=== PATIENT | female | born 1995 | race American Indian/Alaskan Native ===

== ENCOUNTER 2020-09-18 10:48 | Emergency (ER) | payer OTHER ==
--- NOTE | 2020-09-18 11:00 | Emergency Department Report ---
ED General Adult HPI - General Stated complaint: 13 WKS /ABD PAIN/CONSTIPATION PUI?: No Time Seen by Provider: 09/18/20 10:56 - History of Present Illness Initial comments: 24-year-old female presenting at 13 weeks gestation with multiple complaints. The patient states that she has had nausea and vomiting throughout but is being treated by her RESTORATIVE ART EMBALMER and she is primarily here today due to abdominal pain which has been more constant over the past several days especially in the lower abdomen described as cramping. Reports that she may have a UTI but denies specific symptoms related to this. Also reports that she is constipated with no relief with stool softener [id number]. States that at times the pain will radiate into her back. Denies fever, vaginal bleeding or discharge. Sent here by her RESTORATIVE ART EMBALMER for evaluation. Nothing makes symptoms worse or better. - Related Data Previous Rx's Medication Instructions Recorded Last Taken Type Polyethylene Glycol 3350 [Miralax] 17 gm PO DAILY #1 powder 09/18/20 Unknown Rx Allergies Allergy/AdvReac Type Severity Reaction Status Date / Time Penicillins Allergy Hives Verified 09/18/20 11:07 ED Review of Systems ROS: Stated complaint: 13 WKS /ABD PAIN/CONSTIPATION Other details as noted in HPI Comment: All other systems reviewed and negative Gastrointestinal: as per HPI ED Past Medical Hx - Medications Home Medications: Home Medications Medication Instructions Recorded Confirmed Last Taken Type Polyethylene Glycol 3350 [Miralax] 17 gm PO DAILY #1 powder 09/18/20 Unknown Rx ED Physical Exam - General General appearance: alert, in no apparent distress - Head Head exam: Present: atraumatic, normocephalic - Eye Eye exam: Present: normal appearance - ENT ENT exam: Present: mucous membranes moist - Neck Neck exam: Present: normal inspection - Respiratory Respiratory exam: Present: normal lung sounds bilaterally. Absent: respiratory distress - Cardiovascular Cardiovascular Exam: Present: regular rate, normal rhythm. Absent: systolic murmur, diastolic murmur, rubs, gallop - GI/Abdominal GI/Abdominal exam: Present: soft, normal bowel sounds. Absent: distended, tenderness, guarding - Extremities Exam Extremities exam: Present: normal inspection - Back Exam Back exam: Present: normal inspection - Neurological Exam Neurological exam: Present: alert, oriented X3 - Psychiatric Psychiatric exam: Present: normal affect, normal mood - Skin Skin exam: Present: warm, dry, intact, normal color. Absent: rash ED Course Vital Signs 09/18/20 11:07 Temperature 98.1 F Pulse Rate 92 H Respiratory 18 Rate Blood Pressure 126/79 O2 Sat by Pulse 99 Oximetry ED Medical Decision Making - Lab Data Result diagrams: 09/18/20 11:03 09/18/20 11:03 Lab Results 09/18/20 09/18/20 09/18/20 Range/Units 11:03 11:03 11:03 WBC 9.1 (4.5-11.0) K/mm3 RBC 4.07 (3.65-5.03) M/mm3 Hgb 13.0 (10.1-14.3) gm/dl Hct 37.9 (30.3-42.9) % MCV 93 (79-97) fl MCH 32 (28-32) pg MCHC 34 (30-34) % RDW 13.9 (13.2-15.2) % Plt Count 231 (140-440) K/mm3 Lymph % (Auto) 12.7 L (13.4-35.0) % [place] % (Auto) 7.3 (0.0-7.3) % Eos % (Auto) 0.6 (0.0-4.3) % Baso % (Auto) 0.3 (0.0-1.8) % Lymph # (Auto) 1.2 (1.2-5.4) K/mm3 [place] # (Auto) 0.7 (0.0-0.8) K/mm3 Eos # (Auto) 0.1 (0.0-0.4) K/mm3 Baso # (Auto) 0.0 (0.0-0.1) K/mm3 Seg Neutrophils % 79.1 H (40.0-70.0) % Seg Neutrophils # 7.2 (1.8-7.7) K/mm3 Sodium 135 L (137-145) mmol/L Potassium 4.0 (3.6-5.0) mmol/L Chloride 103.1 (98-107) mmol/L Carbon Dioxide 25 (22-30) mmol/L Anion Gap 11 mmol/L BUN 9 (7-17) mg/dL Creatinine 0.4 L (0.6-1.2) mg/dL Estimated GFR > 60 ml/min BUN/Creatinine Ratio 23 % Glucose 89 (65-100) mg/dL Calcium 9.1 (8.4-10.2) mg/dL Total Bilirubin < 0.20 (0.1-1.2) mg/dL AST 20 (5-40) units/L ALT 17 (7-56) units/L Alkaline Phosphatase 36 (35-129) units/L Total Protein 6.9 (6.3-8.2) g/dL Albumin 4.1 (3.9-5) g/dL Albumin/Globulin Ratio 1.5 % HCG, Quant [id number] H (0-4) mIU/mL Urine Color (Yellow) Urine Turbidity (Clear) Urine pH (5.0-7.0) Ur Specific [place] (1.003-1.030) Urine Protein (Negative) mg/dL Urine Glucose (UA) (Negative) mg/dL Urine Ketones (Negative) mg/dL Urine Blood (Negative) Urine Nitrite (Negative) Urine Bilirubin (Negative) Urine Urobilinogen (<2.0) mg/dL Ur Leukocyte Esterase (Negative) Urine WBC (Auto) (0.0-6.0) /HPF Urine RBC (Auto) (0.0-6.0) /HPF U Epithel Cells (Auto) (0-13.0) /HPF Urine Mucus /HPF Blood Type 09/18/20 09/18/20 Range/Units 11:07 11:16 WBC (4.5-11.0) K/mm3 RBC (3.65-5.03) M/mm3 Hgb (10.1-14.3) gm/dl Hct (30.3-42.9) % MCV (79-97) fl MCH (28-32) pg MCHC (30-34) % RDW (13.2-15.2) % Plt Count (140-440) K/mm3 Lymph % (Auto) (13.4-35.0) % [place] % (Auto) (0.0-7.3) % Eos % (Auto) (0.0-4.3) % Baso % (Auto) (0.0-1.8) % Lymph # (Auto) (1.2-5.4) K/mm3 [place] # (Auto) (0.0-0.8) K/mm3 Eos # (Auto) (0.0-0.4) K/mm3 Baso # (Auto) (0.0-0.1) K/mm3 Seg Neutrophils % (40.0-70.0) % Seg Neutrophils # (1.8-7.7) K/mm3 Sodium (137-145) mmol/L Potassium (3.6-5.0) mmol/L Chloride (98-107) mmol/L Carbon Dioxide (22-30) mmol/L Anion Gap mmol/L BUN (7-17) mg/dL Creatinine (0.6-1.2) mg/dL Estimated GFR ml/min BUN/Creatinine Ratio % Glucose (65-100) mg/dL Calcium (8.4-10.2) mg/dL Total Bilirubin (0.1-1.2) mg/dL AST (5-40) units/L ALT (7-56) units/L Alkaline Phosphatase (35-129) units/L Total Protein (6.3-8.2) g/dL Albumin (3.9-5) g/dL Albumin/Globulin Ratio % HCG, Quant (0-4) mIU/mL Urine Color Straw (Yellow) Urine Turbidity Clear (Clear) Urine pH 7.0 (5.0-7.0) Ur Specific [place] 1.011 (1.003-1.030) Urine Protein <15 mg/dl (Negative) mg/dL Urine Glucose (UA) Neg (Negative) mg/dL Urine Ketones Neg (Negative) mg/dL Urine Blood Neg (Negative) Urine Nitrite Neg (Negative) Urine Bilirubin Neg (Negative) Urine Urobilinogen < 2.0 (<2.0) mg/dL Ur Leukocyte Esterase Tr (Negative) Urine WBC (Auto) 2.0 (0.0-6.0) /HPF Urine RBC (Auto) 4.0 (0.0-6.0) /HPF U Epithel Cells (Auto) 10.0 (0-13.0) /HPF Urine Mucus Few /HPF Blood Type A POSITIVE - Radiology Data Radiology results: report reviewed Single viable intrauterine with small subchorionic bleed - Medical Decision Making Patient presents at 13 weeks gestation with complaints of abdominal pain, constipation, cramping without bleeding for the past few days. On my exam patient is in no distress, ambulatory without difficulty, normal heart sounds, clear lungs, no significant abdominal tenderness is noted. No peritonitis. We will check labs and ultrasound. Ultrasound shows small subchorionic bleed, remainder of work-up benign. Discussed supportive care for constipation, pelvic rest, follow-up with RESTORATIVE ART EMBALMER. - Differential Diagnosis Threatened miscarriage, UTI, constipation among others Critical care attestation.: If time is entered above; I have spent that time in minutes in the direct care of this critically ill patient, excluding procedure time. ED Disposition Clinical Impression: Constipation Qualifiers: Constipation type: unspecified constipation type Qualified Code(s): K59.00 - Constipation, unspecified Subchorionic bleed Qualifiers: Fetus number: single or unspecified fetus Trimester: second trimester Qualified Code(s): O41.8X20 - Other specified disorders of amniotic fluid and membranes, second trimester, not applicable or unspecified; O46.8X2 - Other antepartum hemorrhage, second trimester Disposition: TO HOME OR SELFCARE Is pt being admited?: No Condition: Good Instructions: Constipation, Adult, Subchorionic Hematoma Prescriptions: Polyethylene Glycol 3350 [Miralax] 17 gm PO DAILY #1 powder Referrals: PRIMARY CARE, [Primary Care Provider] - 3-5 Days LYN DAVIS MD [Staff Physician] - 3-5 Days Time of Disposition: 14:18
[2020-09-18 11:09] VITALS: BP 126/79
[2020-09-18 11:13] LABS: Basophils % (Auto) 0.3 % (0.0-1.8); Eosinophils # (Auto) 0.1 K/mm3 (0.0-0.4); Eosinophils % (Auto) 0.6 % (0.0-4.3); Hematocrit 37.9 % (30.3-42.9); Lymphocytes # (Auto) 1.2 K/mm3 (1.2-5.4); Lymphocytes % (Auto) 12.7 % (13.4-35.0); Mean Corpuscular HGB Conc 34 % (30-34); Mean Corpuscular Volume 93 fl (79-97); Monocytes # (Auto) 0.7 K/mm3 (0.0-0.8); Monocytes % (Auto) 7.3 % (0.0-7.3); Platelet Count 231 K/mm3 (140-440); Red Blood Count 4.07 M/mm3 (3.65-5.03); Red Cell Distribution Width 13.9 % (13.2-15.2)
[2020-09-18 11:27] LABS: Bilirubin,Urine NEG (Negative); Blood,Urine NEG (Negative); Color,Urine Straw (Yellow); Mucus,Urine FEW /HPF; Protein,Urine <15 mg/dL mg/dL (Negative); Urobilinogen,Urine < 2.0 mg/dL (<2.0)
[2020-09-18 11:34] LABS: Alanine Aminotransferase 17 units/L (7-56); Albumin 4.1 g/dL (3.9-5); BUN/Creatinine Ratio 23; Blood Urea Nitrogen 9 mg/dL (7-17); Calcium 9.1 mg/dL (8.4-10.2); Hemolysis Index 5
--- NOTE | 2020-09-18 14:15 | Ultrasound Report ---
ULTRASOUND OBSTETRIC COMPLETE INDICATION / CLINICAL INFORMATION: pain. Clinical Gestational Age (GA) in weeks, days: 13 weeks, 3 days TECHNIQUE: Transabdominal and Transvaginal. COMPARISON: None available. FINDINGS: NUMBER: Single PRESENTATION: unknown PLACENTA: Posterior and free of the os. MATERNAL ADNEXAL/CERVIX: No significant adnexal abnormality. Cervix measures 3.8 cm and os is closed. AMNIOTIC FLUID VOLUME: normal AMNIOTIC FLUID INDEX (DUNIA) in cm (if measured): Not measured ANATOMY: Examination is not tailored to evaluate detailed anatomy. No gross anatomic abnormality is iden tified. MEASUREMENTS: - Biparietal Diameter = 2.3 cm = 13 weeks 6 days - Head Circumference = 8.7 cm = 13 weeks 6 days - Abdominal Circumference = 7.2 cm = 13 weeks 5 days - Femur Length = 1.4 cm = 14 weeks 1 day - Heart Rate (beats per minute): 161 bpm ADDITIONAL FINDINGS: Small subchorionic hemorrhage measuring 1.5 x 1.2 x 1.2 cm. AVERAGE ULTRASOUND AGE (AUA) in weeks, days = 13 weeks 6 days IMPRESSION: 1. Single intrauterine with AUA of 13 weeks 6 days. 2. Small subchorionic hemorrhage, not greater than 25% of the sac circumference. Continued follow-up is recommended. Signer Name: Venkat Redman MD Signed: 09/18/2020 2:10 PM Workstation Name: [id number]
== END 2020-09-18 15:14 | disposition home or self-care (01) ==
LOC: ED 10:48
DX: O46.91 Antepartum hemorrhage, unspecified, first trimester (principal); O99.611 Diseases of the digestive system complicating pregnancy, first trimester; K59.00 Constipation, unspecified; Z3A.13 13 weeks gestation of pregnancy; Z79.899 Other long term (current) drug therapy; Z88.0 Allergy status to penicillin
CPT/HCPCS: 36415; 76801; 76817; 80053; 81001; 84702; 85025; 86900; 86901

== ENCOUNTER 2020-11-02 14:16 | Emergency (ER) | payer OTHER ==
[2020-11-02] MEDS ORDERED: ALBUTEROL 2.5 MG/3 ML NEBU IH ONE (15:14)
--- NOTE | 2020-11-02 16:20 | Emergency Department Report ---
ED Shortness of Breath HPI - General Chief Complaint: Dyspnea/Respdistress Stated Complaint: BREATHING PROBLEM Time Seen by Provider: 11/02/20 14:59 Source: patient Mode of arrival: Wheelchair Limitations: No Limitations - History of Present Illness Initial Comments: 25-year-old -[place] female who is approximately 19 weeks and 6 days presents to the emergency room complaining of shortness of breath and tightness to her abdomen. Patient states she was sent to the ER by her [facility] SUPER[facility] at [facility] for the shortness of breath. Patient reports that they told her that her tightness in her lower abdomen was due to round ligament stretching. Patient is 4 para 3. She was sent to [facility] [place] as we thought she was 20 weeks and she was released and sent back to the ER for evaluation. Patient states that she has a history of asthma but has not been on any albuterol. Patient recently relocated from [place] to [place]. Patient states she has been taken Tylenol but this does not seem to help much with her ligament pain. Patient denies any vaginal bleeding or vaginal discharge. She denies any vomiting does states she has intermittent nausea. She reports that this is different from her last as she does not have much of an appetite and is having more lower abdominal pain earlier in her . Complaint: shortness of breath - Related Data Previous Rx's Medication Instructions Recorded Last Taken Type Polyethylene Glycol 3350 [Miralax] 17 gm PO DAILY #1 powder 09/18/20 Unknown Rx Cetirizine HCl [Zyrtec 10mg tab] 10 mg PO QDAY #30 tablet 11/02/20 Unknown Rx Levalbuterol Tartrate 15 gm IH QID PRN #1 hfa.aer.ad 11/02/20 Unknown Rx [Levalbuterol Tartrate Hfa] Allergies Allergy/AdvReac Type Severity Reaction Status Date / Time Penicillins Allergy Hives Verified 09/18/20 11:07 ED Review of Systems ROS: Stated complaint: BREATHING PROBLEM Other details as noted in HPI Comment: All other systems reviewed and negative ED Past Medical Hx - Past Medical History Previous Medical History?: Yes Hx Asthma: Yes - Surgical History Additional Surgical History: HERNIA - Social History Smoking Status: Never Smoker Substance Use Type: None - Medications Home Medications: Home Medications Medication Instructions Recorded Confirmed Last Taken Type Polyethylene Glycol 3350 [Miralax] 17 gm PO DAILY #1 powder 09/18/20 Unknown Rx Cetirizine HCl [Zyrtec 10mg tab] 10 mg PO QDAY #30 tablet 11/02/20 Unknown Rx Levalbuterol Tartrate 15 gm IH QID PRN #1 hfa.aer.ad 11/02/20 Unknown Rx [Levalbuterol Tartrate Hfa] ED Physical Exam - General Limitations: No Limitations General appearance: alert, in no apparent distress - Head Head exam: Present: atraumatic, normocephalic - Eye Eye exam: Present: normal appearance - Neck Neck exam: Present: normal inspection - Respiratory Respiratory exam: Present: normal lung sounds bilaterally. Absent: respiratory distress, accessory muscle use - Cardiovascular Cardiovascular Exam: Present: regular rate, normal rhythm. Absent: systolic murmur, diastolic murmur, rubs, gallop - GI/Abdominal GI/Abdominal exam: Present: soft, tenderness (Right and lower abdomen near her groin area) - Extremities Exam Extremities exam: Present: normal inspection, full ROM. Absent: pedal edema - Back Exam Back exam: Present: normal inspection - Neurological Exam Neurological exam: Present: alert, oriented X3 - Psychiatric Psychiatric exam: Present: normal affect, normal mood - Skin Skin exam: Present: warm, dry, intact, normal color. Absent: rash ED Course Vital Signs 11/02/20 11/02/20 14:52 14:55 Temperature 97.6 F Pulse Rate 91 H Respiratory 22 Rate Blood Pressure 107/61 [Right] O2 Sat by Pulse 100 Oximetry ED Medical Decision Making - Medical Decision Making 25-year-old -[place] female who is approximately 19 weeks and 6 days presents to the emergency room complaining of shortness of breath and tightness to her abdomen. Patient states she was sent to the ER by her [facility] SUPER[facility] at [facility] for the shortness of breath. Patient reports that they told her that her tightness in her lower abdomen was due to round ligament stretching. Patient is 4 para 3. [facility] she [facility] 20 weeks and she was released and sent back to the ER for evaluation. Patient states that she has a history of asthma but has not been on any albuterol. Patient recently relocated from [place] to [place]. Patient s tates she has been taken Tylenol but this does not seem to help much with her ligament pain. Patient denies any vaginal bleeding or vaginal discharge. She denies any vomiting does states she has intermittent nausea. She reports that this is different from her last as she does not have much of an appetite and is having more lower abdominal pain earlier in her . Patient was evaluated by this provider. Initiated albuterol 5 mg inhalation given by respiratory therapist. Reevaluating with patient she states that it has helped but now she feels a little jittery. I explained to patient this is side effects of albuterol. She does report she is breathing better. Discussed with patient she can continue with Tylenol as needed for her round ligament pain. Discussed with patient she needs to follow-up with her FORKLIFT SUPERVISOR next week. I will refill her albuterol inhaler. Critical care attestation.: If time is entered above; I have spent that time in minutes in the direct care of this critically ill patient, excluding procedure time. ED Disposition Clinical Impression: Asthma, Pain of round ligament during Disposition: TO HOME OR SELFCARE Is pt being admited?: No Does the pt Need Aspirin: No Condition: Stable Instructions: Asthma (ED), Round Ligament Pain, Asthma, Adult, [id number] Additional Instructions: Please use inhaler as needed for shortness of breath and cough. Take Zyrtec's for allergies this will help with the cough sneezing runny nose. Tylenol for your pain. Increase your water intake. Follow-up with your FORKLIFT SUPERVISOR doctor next week. Prescriptions: Levalbuterol Tartrate [Levalbuterol Tartrate Hfa] 15 gm IH QID PRN #1 hfa.aer.ad PRN Reason: Shortness Of Breath Cetirizine HCl [Zyrtec 10mg tab] 10 mg PO QDAY #30 tablet Referrals: PRIMARY CARE, [Primary Care Provider] - 3-5 Days [facility] [Provider Group] - 3-5 Days
[2020-11-02 16:31] VITALS: BP 119/71
== END 2020-11-02 16:38 | disposition home or self-care (01) ==
LOC: ED 14:16
DX: O99.512 Diseases of the respiratory system complicating pregnancy, second trimester (principal); O26.892 Other specified pregnancy related conditions, second trimester; J45.909 Unspecified asthma, uncomplicated; R10.30 Lower abdominal pain, unspecified; Z3A.19 19 weeks gestation of pregnancy; Z98.890 Other specified postprocedural states; Z79.899 Other long term (current) drug therapy; Z88.0 Allergy status to penicillin
CPT/HCPCS: 94640; 94644; 99282

== ENCOUNTER 2021-04-01 08:34 | Inpatient (IN) | payer OTHER ==
[2021-04-01] MEDS ORDERED: LOPERAMIDE 2 MG CAP PO PRN (10:14)
[2021-04-01] MEDS ORDERED: NALOXONE 0.4 MG/1 ML INJ IV PRN (10:14)
[2021-04-01] MEDS ORDERED: OXYTOCIN 10 UNIT/1 ML INJ IM PRN (10:14)
[2021-04-01] MEDS ORDERED: LIDOCAINE (2%) 20 MG/1 ML VIAL 20 ML MDV INFILTRATI ONE (10:14)
[2021-04-01] MEDS ORDERED: fentaNYL 100 MCG/2 ML INJ IV PRN (10:14)
[2021-04-01] MEDS ORDERED: METHYLERGONOVINE MALEATE 0.2 MG/ML VIAL IM PRN (10:14)
[2021-04-01] MEDS ORDERED: TERBUTALINE 1 MG/1 ML INJ SUB-Q PRN (10:14)
[2021-04-01] MEDS ORDERED: ACETAMINOPHEN 325 MG TAB PO PRN (10:14)
[2021-04-01] MEDS ORDERED: CARBOPROST TROMETHAMINE 250 MCG/1 ML INJ IM PRN (10:14)
[2021-04-01] MEDS ORDERED: NalbUPHINE 10 MG/1 ML INJ IV PRN (10:14)
[2021-04-01] MEDS ORDERED: ONDANSETRON 4 MG/2 ML INJ IV PRN (10:14)
[2021-04-01] MEDS ORDERED: ePHEDrine SULFATE 50 MG/1 ML INJ IV PRN ×2 (10:14→18:17)
[2021-04-01] MEDS ORDERED: miSOPROStol 200 MCG TAB PR PRN (10:14)
--- NOTE | 2021-04-01 10:14 | History and Physical Report ---
History of Present Illness Date of examination: 04/01/21 Date of admission: 04/01/2021 Chief complaint: "I'm past my due date" History of present illness: EDC Confirmation: 03/23/2021 Gestational Age: 41 2/7 weeks Past History : 4 Term Births: 3 Premature Births: 0 Living Children: 3 Para: 3 Mult. Births: 0 Prev : 0 Aborta: 0 Elect. Ab: 0 Spont. Ab: 0 Ectopics: 0 # 1 Delivery date: 2013 Weeks Gestation: term labor: no Delivery type: Anesthesia type: epidural Delivery location: [place] Sex: Male weight: 6-14 # 2 Delivery date: 2016 Weeks Gestation: term Delivery type: Anesthesia type: epidural Delivery location: [place] Sex: Male weight: 6-12 # 3 Delivery date: 2017 Weeks Gestation: term labor: no Delivery type: Anesthesia type: epidural Delivery location: [place] Sex: Male weight: 6-14 Comments: Nuchal cord and jaundice, in NICU for 2-3 days Past Medical History: Reviewed history and no changes required: Bipolar Disease Depression PTSD from childhood Asthma Past Surgical History: Reviewed history and no changes required: negative Past Medical History Anesthesia Complications: negative Anemia: positive, After hernia surgery Autoimmune Disorder: negative Bleeding Disorder: negative Blood Transfusions: negative Breast Disease: negative Diabetes: negative Heart Disease: negative Hypertension: negative Hepatitis/Liver Disease: negative Kidney Disease/UTI: negative Neurologic/Epilepsy/Migraines: negative Phlebitis/Varicosities: negative Psychiatric: positive, Bipolar, PTSD, Depression Pulmonary Disease/Asthma: negative Thyroid Disease: negative Hospitalizations: negative Surgery (Non-permit coordinator): negative Abnormal PAP: negative KEEGAN Exposure: negative Infertility: negative Uterine Anomaly: negative Uterine Surgery (not C/S): negative Other Gynecologic Problems: negative Family Hx: Grand Parents: DM, cervical cancer, liver failure, HTN Infection History Hx of STD: Trich/GC/CH HIV Risk Eval: no Hepatitis B Risk Eval: low risk Personal hx. of genital herpes: no Partner hx. of genital herpes: no Rash, Viral, or Febrile illness since last LMP? no Varicella/Chicken Pox Status: Previous Disease TB Risk: no Genetic History Congenital Heart Defect: Mom: no Dad: no Lei Disease: Mom: no Dad: no Thalassemia Mom: no Dad: no Neural Tube Defect Mom: no Dad: no Down's Syndrome Mom: no Dad: no Ross-Sachs Mom: no Dad: no Sickle Cell Disease/Trait Mom: no Dad: no Hemophilia Mom: no Dad: no Muscular Dystrophy Mom: no Dad: no Cystic Fibrosis Mom: no Dad: no Morales Chorea Mom: no Dad: no Mental Retardation Mom: no Dad: no Fragile X Mom: no Dad: no Other Genetic/Chromosomal Disorder Mom: no Dad: no Child w/other defect Mom: no Dad: no Enviromental Exposures Enviromental Exposures Reviewed Xray Exposure: no Medication, drug, or alcohol use since LMP: no Chemical/Other Exposure: no Exposure to Cat Liter: no Hx of Parvovirus (Fifth Disease): no Occupational Exposure to Children: none Active Medications (reviewed today): ONDANSETRON 8 MG ORAL TABLET DISINTEGRATING (ONDANSETRON) 1 po q12hrs prn REGLAN 10 MG ORAL TABLET (METOCLOPRAMIDE HCL) 1 po q6h x24hrs then prn PNV () Current Allergies (reviewed today): * PENICILLIN (Critical) Past History Past Medical History: other (see HPI) Past Surgical History: other (see HPI) 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: 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 (see HPI) Family/Genetic History: other (see HPI) Social history: other (see HPI) - Obstetrical History Expected Date of Delivery: 03/23/21 Actual Gestation: 41 Week(s) 2 Day(s) : 4 Para: 3 Hx # Term Pregnancies: 3 Number of Pregnancies: 0 Spontaneous Abortions: 0 Induced : 0 Number of Living Children: 3 Medications and Allergies Allergies Allergy/AdvReac Type Severity Reaction Status Date / Time Penicillins Allergy Hives Verified 09/18/20 11:07 Home Medications Medication Instructions Recorded Confirmed Last Taken Type Polyethylene Glycol 3350 [Miralax] 17 gm PO DAILY #1 powder 09/18/20 Unknown Rx Cetirizine HCl [Zyrtec 10mg tab] 10 mg PO QDAY #30 tablet 11/02/20 Unknown Rx Levalbuterol Tartrate 15 gm IH QID PRN #1 hfa.aer.ad 11/02/20 Unknown Rx [Levalbuterol Tartrate Hfa] Review of Systems All systems: negative Genitourinary: contractions - Vital Signs Vital signs: Vital Signs Temp Pulse Resp BP Pulse Ox 98.1 F 100 H 16 115/71 99 04/01/21 09:28 04/01/21 09:28 04/01/21 09:28 04/01/21 09:28 04/01/21 09:28 Temp Pulse Resp BP Pulse Ox 98.1 F 80 16 115/71 100 04/01/21 09:28 04/01/21 09:43 04/01/21 09:28 04/01/21 09:28 04/01/21 09:43 - Physical Exam Breasts: Positive: deferred Cardiovascular: Regular rate Lungs: Positive: Clear to auscultation, Normal air movement Abdomen: Positive: normal appearance, soft. Negative: tenderness, guarding Genitourinary (Female): Positive: normal external genitalia, normal perenium Vulva: both: normal Vagina: Positive: normal moisture. Negative: discharge Uterus: Positive: normal size, normal contour Anus/Rectum: Positive: normal perianal skin Extremities: Positive: normal - Obstetrical FHR: auscultation normal, category 1 Uterine Contraction Monitor Mode: External Cervical Dilatation: 2 Cervical Effacement Percentage: 50 station: -2 Uterine Contraction Pattern: Irregular Uterine Tone Measurement Phase: Resting Results Result Diagrams: 04/01/21 11:01 All other labs normal. Tests: (1) Ct, Ng, Trich vag by HOLLEY ([id number]) Order Note: Clinical Information: SRC:VR SRC:UR Chlamydia by HOLLEY Negative Negative *1 Gonococcus by HOLLEY Negative Negative *2 Trich vag by HOLLEY Negative Negative *3 Tests: (2) Strep Gp B HOLLEY ([id number]) ! Strep Gp B HOLLEY Negative Negative *4 Tests: (1) Profile I ([id number]) Order Note: Clinical Information: SRC:UR HBsAg Screen Negative Negative *1 RPR Non Reactive Non Reactive *2 Rubella Antibodies, IgG 6.13 index Immune >0.99 *3 Non-immune <0.90 Equivocal 0.90 - 0.99 Immune >0.99 ABO Grouping A *4 Rh Factor Positive *5 Please note: Prior records for this patient's ABO / Rh type are not available for additional verification. Antibody Screen Negative Negative *6 WBC 10.2 x10E3/uL 3.4-10.8 *7 RBC 4.06 x10E6/uL 3.77-5.28 *8 Hemoglobin 12.5 g/dL 11.1-15.9 *9 Hematocrit 39.1 % 34.0-46.6 *10 MCV 96 fL 79-97 *11 MCH 30.8 pg 26.6-33.0 *12 MCHC 32.0 g/dL 31.5-35.7 *13 RDW 13.1 % 11.7-15.4 *14 Platelets 245 x10E3/uL 150-450 *15 Neutrophils 77 % Not Estab. *16 Lymphs 15 % Not Estab. *17 Monocytes 7 % Not Estab. *18 Eos 1 % Not Estab. *19 Basos 0 % Not Estab. *20 ! Immature Cells <No Reported Value> *21 Neutrophils (Absolute) [H] 7.9 x10E3/uL 1.4-7.0 *22 Lymphs (Absolute) 1.5 x10E3/uL 0.7-3.1 *23 Monocytes(Absolute) 0.7 x10E3/uL 0.1-0.9 *24 Eos (Absolute) 0.1 x10E3/uL 0.0-0.4 *25 Baso (Absolute) 0.0 x10E3/uL 0.0-0.2 *26 ! Immature Granulocytes 0 % Not Estab. *27 ! Immature Grans (Abs) 0.0 x10E3/uL 0.0-0.1 *28 ! NRBC <No Reported Value> *29 Hematology Comments: <No Reported Value> *30 Tests: (2) HIV Ag/Ab with Reflex ([id number]) HIV Screen 4th Generation wRfx Non Reactive Non Reactive *31 Tests: (3) HCV Ab w/Rflx to Verification ([id number]) ! HCV Ab <0.1 s/co ratio 0.0-0.9 *32 Tests: (4) Comment: ([id number]) ! Comment: SPRCS *33 Non reactive HCV antibody screen is consistent with no HCV infection, unless recent infection is suspected or other evidence exists to indicate HCV infection. Tests: (5) Urine Culture, Routine ([id number]) Urine Culture, Routine Final report *34 Tests: (6) Result ([id number]) ! Result 1 No growth *35 Assessment and Plan Pt presents for IOL for postdates. Pt denies any complaints at this time. Reports +FM and occasional contractions. GBS negative and SVE 2/50%/-2; pt tolerated procedure well. All IOL options with risks and benefits d/w pt. Pt verbalizes understanding and agrees to Pitocin. Orders placed in EMR. Anticipate - Patient Problems (1) 41 weeks gestation of Current Visit: Yes Status: Acute (2) Encounter for induction of labor Current Visit: Yes Status: Acute (3) Asthma Current Visit: Yes Status: Acute Plan to address problem: no current home medications (4) PTSD (post-traumatic stress disorder) Current Visit: Yes Status: Acute Plan to address problem: from childhood and no current home medications taken (5) Bipolar affect, depressed Current Visit: Yes Status: Acute Plan to address problem: no current medications prescribed Psych consult PRN
[2021-04-01] MEDS ORDERED: OXYTOCIN DRIP 30 UNITS/500 ML BAG IV SCH ×2 (11:00)
[2021-04-01 11:26] LABS: Hemoglobin 13.4 gm/dl (10.1-14.3); Mean Corpuscular HGB Conc 34 % (30-34); Mean Corpuscular Volume 95 fl (79-97); Platelet Count 188 K/mm3 (140-440); Red Blood Count 4.11 M/mm3 (3.65-5.03); Red Cell Distribution Width 14.9 % (13.2-15.2)
[2021-04-01] MEDS: LACTATED RINGERS 1,000 ML IV SCH ×2 (11:45→22:27)
--- NOTE | 2021-04-01 16:44 | Anesthesia Consultation ---
Anesthesia Consult and Med Hx Date of service: 04/01/21 - Airway ROM Head & Neck: Adequate - Pulmonary Exam CTA: No - Cardiac Exam Cardiac Exam: No Murmur - Pre-Operative Health Status ASA Pre-Surgery Classification: ASA2 Proposed Anesthetic Plan: Epidural - Pulmonary Hx Asthma: Yes Hx Respiratory Symptoms: No SOB: No COPD: No Home Oxygen Therapy: No Hx Pneumonia: No Hx Sleep Apnea: No - Cardiovascular System Hx Hypertension: No Hx Coronary Artery Disease: No Hx Heart Attack/AMI: No Hx Angina: No Hx Percutaneous Transluminal Coronary Angioplasty (PTCA): No Hx Cardia Arrhythmia: No Hx Pacemaker: No Hx Internal Defibrillator: No Hx Valvular Heart Disease: No Hx Heart Murmur: No Hx Peripheral Vascular Disease: No - Central Nervous System Hx Neuromuscular Disorder: No Hx Seizures: No CVA: No Hx Back Pain: No Hx Psychiatric Problems: No - Gastrointestinal Hx Ulcer: No Hx Gastroesophageal Reflux Disease: No - Endocrine Hx Renal Disease: No Hx End Stage Renal Disease: No Hx Cirrhosis: No Hx Liver Disease: No Hx Insulin Dependent Diabetes: No Hx Non-Insulin Dependent Diabetes: No Hx Thyroid Disease: No Hx Hypothyroidism: No Hx Hyperthyroidism: No - Hematic Hx Anemia: No Hx Sickle Cell Disease: No - Other Systems Hx Alcohol Use: No Hx Substance Use: No Hx Cancer: No Hx Obesity: No
[2021-04-01] MEDS ORDERED: NALOXONE 2 MG/2 ML INJ IV PRN (18:17)
--- NOTE | 2021-04-01 19:45 | Progress Note ---
Labor Epidural - Labor Epidural Start Time: 19:16 Stop Time: 19:34 Performed by:: FAYE MEDINA Procedure: Patient is requesting epidural for labor and pain. H&P, labs were reviewed. Patient IDed, H&P reviewed, all questions and concerns were answered, and consent was signed. Timeout was performed at bedside. Patient in sitting position. Sterile prep and drape was performed. 3ml of 1% lidocaine skin wheal at L[3]- L [4]. 18-gauge Tuohy epidural needle was advanced to loss of resistance with air technique cm. Negative CSF negative blood. Epidural catheter advanced to [15] centimeters. [negative] Aspiration [negative] test dose. Sterile dressing applied. Patient tolerated procedure.
[2021-04-01] MEDS: fentaNYL-BUPIV 2 MCG/ML-0.125% 200 MCG/100 ML BAG EPIDURAL SCH (20:20)
--- NOTE | 2021-04-01 20:46 | Progress Note ---
Assessment and Plan - Patient Problems (1) 41 weeks gestation of Current Visit: Yes Status: Acute (2) Encounter for induction of labor Current Visit: Yes Status: Acute (3) Asthma Current Visit: Yes Status: Acute (4) PTSD (post-traumatic stress disorder) Current Visit: Yes Status: Acute (5) Bipolar affect, depressed Current Visit: Yes Status: Acute Subjective - Subjective Interval history: EDC Confirmation: 03/23/2021 Gestational Age: 41 2/7 weeks Past History : 4 Term Births: 3 Premature Births: 0 Living Children: 3 Para: 3 Mult. Births: 0 Prev : 0 Aborta: 0 Elect. Ab: 0 Spont. Ab: 0 Ectopics: 0 # 1 Delivery date: 2013 Weeks Gestation: term labor: no Delivery type: Anesthesia type: epidural Delivery location: [facility] Sex: Male weight: 6-14 # 2 Delivery date: 2016 Weeks Gestation: term Delivery type: Anesthesia type: epidural Delivery location: [facility] Sex: Male weight: 6-12 # 3 Delivery date: 2017 Weeks Gestation: term labor: no Delivery type: Anesthesia type: epidural Delivery location: [facility] Sex: Male weight: 6-14 Comments: Nuchal cord and jaundice, infant in NICU for 2-3 days Past Medical History: Reviewed history and no changes required: Bipolar Disease Depression PTSD from childhood Asthma Past Surgical History: Reviewed history and no changes required: negative Past Medical History Anesthesia Complications: negative Anemia: positive, After hernia surgery Autoimmune Disorder: negative Bleeding Disorder: negative Blood Transfusions: negative Breast Disease: negative Diabetes: negative Heart Disease: negative Hypertension: negative Hepatitis/Liver Disease: negative Kidney Disease/UTI: negative Neurologic/Epilepsy/Migraines: negative Phlebitis/Varicosities: negative Psychiatric: positive, Bipolar, PTSD, Depression Pulmonary Disease/Asthma: negative Thyroid Disease: negative Hospitalizations: negative Surgery (Non-charging plug placer): negative Abnormal PAP: negative KEEGAN Exposure: negative Infertility: negative Uterine Anomaly: negative Uterine Surgery (not C/S): negative Other Gynecologic Problems: negative Family Hx: Grand Parents: DM, cervical cancer, liver failure, HTN Infection History Hx of STD: Trich/GC/CH HIV Risk Eval: no Hepatitis B Risk Eval: low risk Personal hx. of genital herpes: no Partner hx. of genital herpes: no Rash, Viral, or Febrile illness since last LMP? no Varicella/Chicken Pox Status: Previous Disease TB Risk: no Genetic History Congenital Heart Defect: Mom: no Dad: no Lie Disease: Mom: no Dad: no Thalassemia Mom: no Dad: no Neural Tube Defect Mom: no Dad: no Down's Syndrome Mom: no Dad: no Ross-Sachs Mom: no Dad: no Sickle Cell Disease/Trait Mom: no Dad: no Hemophilia Mom: no Dad: no Muscular Dystrophy Mom: no Dad: no Cystic Fibrosis Mom: no Dad: no Morales Chorea Mom: no Dad: no Mental Retardation Mom: no Dad: no Fragile X Mom: no Dad: no Other Genetic/Chromosomal Disorder Mom: no Dad: no Child w/other defect Mom: no Dad: no Enviromental Exposures Enviromental Exposures Reviewed Xray Exposure: no Medication, drug, or alcohol use since LMP: no Chemical/Other Exposure: no Exposure to Cat Liter: no Hx of Parvovirus (Fifth Disease): no Occupational Exposure to Children: none Active Medications (reviewed today): ONDANSETRON 8 MG ORAL TABLET DISINTEGRATING (ONDANSETRON) 1 po q12hrs prn REGLAN 10 MG ORAL TABLET (METOCLOPRAMIDE HCL) 1 po q6h x24hrs then prn PNV () Current Allergies (reviewed today): * PENICILLIN (Critical) Objective - Vital Signs Vital Signs: Vital Signs - 12hr 04/01/21 04/01/21 04/01/21 09:28 09:33 09:38 Temperature 98.1 F Pulse Rate 95 H 84 102 H Respiratory 16 Rate Blood Pressure 115/71 Blood Pressure 115/71 [Right] O2 Sat by Pulse 99 99 100 Oximetry 04/01/21 04/01/21 04/01/21 09:43 11:47 11:52 Temperature Pulse Rate 80 78 78 Respiratory Rate Blood Pressure Blood Pressure [Right] O2 Sat by Pulse 100 100 100 Oximetry 04/01/21 04/01/21 04/01/21 11:57 12:02 12:07 Temperature Pulse Rate 81 75 77 Respiratory Rate Blood Pressure Blood Pressure [Right] O2 Sat by Pulse 100 100 100 Oximetry 04/01/21 04/01/21 04/01/21 12:12 12:17 12:22 Temperature Pulse Rate 89 84 81 Respiratory Rate Blood Pressure Blood Pressure [Right] O2 Sat by Pulse 100 99 100 Oximetry 04/01/21 04/01/21 04/01/21 12:27 12:32 12:37 Temperature Pulse Rate 79 73 78 Respiratory Rate Blood Pressure Blood Pressure [Right] O2 Sat by Pulse 100 100 100 Oximetry 04/01/21 04/01/21 04/01/21 12:41 12:42 12:47 Temperature Pulse Rate 59 L 68 77 Respiratory Rate Blood Pressure Blood Pressure [Right] O2 Sat by Pulse 82 L 86 100 Oximetry 04/01/21 04/01/21 04/01/21 12:52 12:57 13:02 Temperature Pulse Rate 86 81 80 Respiratory Rate Blood Pressure Blood Pressure [Right] O2 Sat by Pulse 100 100 100 Oximetry 04/01/21 04/01/21 04/01/21 13:07 13:12 13:17 Temperature Pulse Rate 85 72 84 Respiratory Rate Blood Pressure Blood Pressure [Right] O2 Sat by Pulse 100 100 100 Oximetry 04/01/21 04/01/21 04/01/21 13:22 13:27 13:32 Temperature Pulse Rate 74 80 80 Respiratory Rate Blood Pressure Blood Pressure [Right] O2 Sat by Pulse 100 100 100 Oximetry 04/01/21 04/01/21 04/01/21 13:37 13:42 13:47 Temperature Pulse Rate 77 75 68 Respiratory Rate Blood Pressure Blood Pressure [Right] O2 Sat by Pulse 100 100 100 Oximetry 04/01/21 04/01/21 04/01/21 13:52 13:57 14:01 Temperature Pulse Rate 75 68 74 Respiratory Rate Blood Pressure Blood Pressure [Right] O2 Sat by Pulse 100 100 91 Oximetry 04/01/21 04/01/21 04/01/21 14:02 14:07 14:11 Temperature Pulse Rate 80 72 85 Respiratory Rate Blood Pressure Blood Pressure [Right] O2 Sat by Pulse 100 100 92 Oximetry 04/01/21 04/01/21 04/01/21 14:12 14:17 14:22 Temperature Pulse Rate 77 84 75 Respiratory Rate Blood Pressure Blood Pressure [Right] O2 Sat by Pulse 100 100 100 Oximetry 04/01/21 04/01/21 04/01/21 14:27 14:32 14:37 Temperature Pulse Rate 77 74 72 Respiratory Rate Blood Pressure Blood Pressure [Right] O2 Sat by Pulse 100 100 100 Oximetry 04/01/21 04/01/21 04/01/21 14:42 14:46 14:47 Temperature Pulse Rate 78 80 83 Respiratory Rate Blood Pressure Blood Pressure [Right] O2 Sat by Pulse 100 85 100 Oximetry 04/01/21 04/01/21 04/01/21 14:52 14:57 15:02 Temperature Pulse Rate 80 75 73 Respiratory Rate Blood Pressure Blood Pressure [Right] O2 Sat by Pulse 100 100 100 Oximetry 04/01/21 04/01/21 04/01/21 15:07 15:12 15:17 Temperature Pulse Rate 80 85 81 Respiratory Rate Blood Pressure Blood Pressure [Right] O2 Sat by Pulse 100 100 100 Oximetry 04/01/21 04/01/21 04/01/21 15:22 15:27 15:32 Temperature Pulse Rate 80 77 90 Respiratory Rate Blood Pressure Blood Pressure [Right] O2 Sat by Pulse 100 100 100 Oximetry 04/01/21 04/01/21 04/01/21 15:37 15:42 15:47 Temperature Pulse Rate 85 86 87 Respiratory Rate Blood Pressure Blood Pressure [Right] O2 Sat by Pulse 100 100 100 Oximetry 04/01/21 04/01/21 04/01/21 15:52 15:57 16:02 Temperature Pulse Rate 89 75 80 Respiratory Rate Blood Pressure Blood Pressure [Right] O2 Sat by Pulse 99 99 100 Oximetry 04/01/21 04/01/21 04/01/21 16:07 16:12 16:17 Temperature Pulse Rate 76 85 79 Respiratory Rate Blood Pressure Blood Pressure [Right] O2 Sat by Pulse 100 100 100 Oximetry 04/01/21 04/01/21 04/01/21 16:22 16:25 16:27 Temperature Pulse Rate 68 77 71 Respiratory Rate Blood Pressure Blood Pressure [Right] O2 Sat by Pulse 100 91 99 Oximetry 04/01/21 04/01/21 04/01/21 16:30 16:32 16:37 Temperature Pulse Rate 155 H 75 Respiratory Rate Blood Pressure Blood Pressure [Right] O2 Sat by Pulse 87 83 L 100 Oximetry 04/01/21 04/01/21 04/01/21 16:42 16:47 16:52 Temperature Pulse Rate 78 77 76 Respiratory Rate Blood Pressure Blood Pressure [Right] O2 Sat by Pulse 100 100 100 Oximetry 04/01/21 04/01/21 04/01/21 16:57 17:02 17:07 Temperature Pulse Rate 76 75 74 Respiratory Rate Blood Pressure Blood Pressure [Right] O2 Sat by Pulse 100 100 100 Oximetry 04/01/21 04/01/21 04/01/21 17:12 17:17 17:22 Temperature Pulse Rate 70 80 72 Respiratory Rate Blood Pressure Blood Pressure [Right] O2 Sat by Pulse 100 100 100 Oximetry 04/01/21 04/01/21 04/01/21 17:27 17:32 17:37 Temperature Pulse Rate 76 76 76 Respiratory Rate Blood Pressure Blood Pressure [Right] O2 Sat by Pulse 100 100 99 Oximetry 04/01/21 04/01/21 04/01/21 17:42 17:47 17:52 Temperature Pulse Rate 76 74 75 Respiratory Rate Blood Pressure Blood Pressure [Right] O2 Sat by Pulse 100 100 100 Oximetry 04/01/21 04/01/21 04/01/21 17:58 18:02 18:07 Temperature Pulse Rate 81 77 75 Respiratory Rate Blood Pressure Blood Pressure [Right] O2 Sat by Pulse 100 100 100 Oximetry 04/01/21 04/01/21 04/01/21 18:12 18:17 18:28 Temperature Pulse Rate 76 81 77 Respiratory Rate Blood Pressure Blood Pressure [Right] O2 Sat by Pulse 100 100 80 L Oximetry 04/01/21 04/01/21 04/01/21 18:32 18:37 18:42 Temperature Pulse Rate 76 84 81 Respiratory Rate Blood Pressure Blood Pressure [Right] O2 Sat by Pulse 100 100 100 Oximetry 04/01/21 04/01/21 04/01/21 18:48 18:59 19:04 Temperature Pulse Rate 88 75 86 Respiratory Rate Blood Pressure Blood Pressure [Right] O2 Sat by Pulse 100 100 100 Oximetry 04/01/21 04/01/21 04/01/21 19:09 19:12 19:13 Temperature 97.7 F Pulse Rate 90 80 Respiratory 17 Rate Blood Pressure 119/71 Blood Pressure [Right] O2 Sat by Pulse 100 100 Oximetry 04/01/21 04/01/21 04/01/21 19:15 19:19 19:25 Temperature Pulse Rate 88 90 81 Respiratory Rate Blood Pressure Blood Pressure [Right] O2 Sat by Pulse 100 100 100 Oximetry 04/01/21 04/01/21 04/01/21 19:29 19:33 19:35 Temperature Pulse Rate 86 85 88 Respiratory Rate Blood Pressure 122/71 115/68 Blood Pressure [Right] O2 Sat by Pulse 100 100 Oximetry 04/01/21 04/01/21 04/01/21 19:37 19:39 19:40 Temperature Pulse Rate 85 85 80 Respiratory Rate Blood Pressure 113/68 118/72 Blood Pressure [Right] O2 Sat by Pulse 100 Oximetry 04/01/21 04/01/21 04/01/21 19:42 19:43 19:45 Temperature Pulse Rate 83 73 Respiratory Rate Blood Pressure 116/56 124/64 Blood Pressure [Right] O2 Sat by Pulse 100 Oximetry 04/01/21 04/01/21 04/01/21 19:50 19:54 19:55 Temperature Pulse Rate 77 72 75 Respiratory Rate Blood Pressure 106/63 127/71 Blood Pressure [Right] O2 Sat by Pulse 99 99 Oximetry 04/01/21 04/01/21 04/01/21 20:00 20:05 20:09 Temperature Pulse Rate 84 71 71 Respiratory Rate Blood Pressure 126/72 Blood Pressure [Right] O2 Sat by Pulse 98 99 Oximetry 04/01/21 04/01/21 04/01/21 20:10 20:14 20:20 Temperature Pulse Rate 78 71 75 Respiratory Rate Blood Pressure Blood Pressure [Right] O2 Sat by Pulse 99 99 99 Oximetry 04/01/21 04/01/21 04/01/21 20:25 20:30 20:35 Temperature Pulse Rate 72 79 66 Respiratory Rate Blood Pressure 114/65 Blood Pressure [Right] O2 Sat by Pulse 99 100 99 Oximetry 04/01/21 04/01/21 20:40 20:45 Temperature Pulse Rate 72 69 Respiratory Rate Blood Pressure 93/48 Blood Pressure [Right] O2 Sat by Pulse 99 99 Oximetry - Labs Labs: Abnormal Labs 04/01/21 11:01 MCH 33 H Laboratory Results - last 24 hr 04/01/21 04/01/21 04/01/21 08:25 11:01 11:01 WBC 6.8 RBC 4.11 Hgb 13.4 Hct 39.0 MCV 95 MCH 33 H MCHC 34 RDW 14.9 Plt Count 188 Syphilis IgG Antibody Nonreactive Coronavirus (PCR) Negative Blood Type Antibody Screen 04/01/21 11:01 WBC RBC Hgb Hct MCV MCH MCHC RDW Plt Count Syphilis IgG Antibody Coronavirus (PCR) Blood Type A POSITIVE Antibody Screen Negative
[2021-04-01] MEDS ORDERED: MINERAL OIL 30 ML ORAL LIQD PO PRN (22:00)
--- NOTE | 2021-04-01 23:26 | Progress Note ---
Assessment and Plan Pt comfortable s/p epidural. @2044 SVE 2/50/-2, now SVE 3.5/50/-2; plan to continue Pitocin induction per protocol d/w pt and RN at bedside. No questions or complaints verbalized at this time. Pt tolerated exam well. Anticipate - Patient Problems (1) 41 weeks gestation of Current Visit: Yes Status: Acute (2) Encounter for induction of labor Current Visit: Yes Status: Acute (3) Asthma Current Visit: Yes Status: Acute (4) PTSD (post-traumatic stress disorder) Current Visit: Yes Status: Acute (5) Bipolar affect, depressed Current Visit: Yes Status: Acute Subjective - Subjective Date of service: 04/01/21 Principal diagnosis: IUP @ 41.2 weeks, IOL for PD Patient reports: movement normal, no new complaints, no loss of fluid, no vaginal bleeding, no contractions Objective - Vital Signs Vital Signs: Vital Signs - 12hr 04/01/21 04/01/21 04/01/21 11:47 11:52 11:57 Temperature Pulse Rate 78 78 81 Respiratory Rate Blood Pressure O2 Sat by Pulse 100 100 100 Oximetry 04/01/21 04/01/21 04/01/21 12:02 12:07 12:12 Temperature Pulse Rate 75 77 89 Respiratory Rate Blood Pressure O2 Sat by Pulse 100 100 100 Oximetry 04/01/21 04/01/21 04/01/21 12:17 12:22 12:27 Temperature Pulse Rate 84 81 79 Respiratory Rate Blood Pressure O2 Sat by Pulse 99 100 100 Oximetry 04/01/21 04/01/21 04/01/21 12:32 12:37 12:41 Temperature Pulse Rate 73 78 59 L Respiratory Rate Blood Pressure O2 Sat by Pulse 100 100 82 L Oximetry 04/01/21 04/01/21 04/01/21 12:42 12:47 12:52 Temperature Pulse Rate 68 77 86 Respiratory Rate Blood Pressure O2 Sat by Pulse 86 100 100 Oximetry 04/01/21 04/01/21 04/01/21 12:57 13:02 13:07 Temperature Pulse Rate 81 80 85 Respiratory Rate Blood Pressure O2 Sat by Pulse 100 100 100 Oximetry 04/01/21 04/01/21 04/01/21 13:12 13:17 13:22 Temperature Pulse Rate 72 84 74 Respiratory Rate Blood Pressure O2 Sat by Pulse 100 100 100 Oximetry 04/01/21 04/01/21 04/01/21 13:27 13:32 13:37 Temperature Pulse Rate 80 80 77 Respiratory Rate Blood Pressure O2 Sat by Pulse 100 100 100 Oximetry 04/01/21 04/01/21 04/01/21 13:42 13:47 13:52 Temperature Pulse Rate 75 68 75 Respiratory Rate Blood Pressure O2 Sat by Pulse 100 100 100 Oximetry 04/01/21 04/01/21 04/01/21 13:57 14:01 14:02 Temperature Pulse Rate 68 74 80 Respiratory Rate Blood Pressure O2 Sat by Pulse 100 91 100 Oximetry 04/01/21 04/01/21 04/01/21 14:07 14:11 14:12 Temperature Pulse Rate 72 85 77 Respiratory Rate Blood Pressure O2 Sat by Pulse 100 92 100 Oximetry 04/01/21 04/01/21 04/01/21 14:17 14:22 14:27 Temperature Pulse Rate 84 75 77 Respiratory Rate Blood Pressure O2 Sat by Pulse 100 100 100 Oximetry 04/01/21 04/01/21 04/01/21 14:32 14:37 14:42 Temperature Pulse Rate 74 72 78 Respiratory Rate Blood Pressure O2 Sat by Pulse 100 100 100 Oximetry 04/01/21 04/01/21 04/01/21 14:46 14:47 14:52 Temperature Pulse Rate 80 83 80 Respiratory Rate Blood Pressure O2 Sat by Pulse 85 100 100 Oximetry 04/01/21 04/01/21 04/01/21 14:57 15:02 15:07 Temperature Pulse Rate 75 73 80 Respiratory Rate Blood Pressure O2 Sat by Pulse 100 100 100 Oximetry 04/01/21 04/01/21 04/01/21 15:12 15:17 15:22 Temperature Pulse Rate 85 81 80 Respiratory Rate Blood Pressure O2 Sat by Pulse 100 100 100 Oximetry 04/01/21 04/01/21 04/01/21 15:27 15:32 15:37 Temperature Pulse Rate 77 90 85 Respiratory Rate Blood Pressure O2 Sat by Pulse 100 100 100 Oximetry 04/01/21 04/01/21 04/01/21 15:42 15:47 15:52 Temperature Pulse Rate 86 87 89 Respiratory Rate Blood Pressure O2 Sat by Pulse 100 100 99 Oximetry 04/01/21 04/01/21 04/01/21 15:57 16:02 16:07 Temperature Pulse Rate 75 80 76 Respiratory Rate Blood Pressure O2 Sat by Pulse 99 100 100 Oximetry 04/01/21 04/01/21 04/01/21 16:12 16:17 16:22 Temperature Pulse Rate 85 79 68 Respiratory Rate Blood Pressure O2 Sat by Pulse 100 100 100 Oximetry 04/01/21 04/01/21 04/01/21 16:25 16:27 16:30 Temperature Pulse Rate 77 71 Respiratory Rate Blood Pressure O2 Sat by Pulse 91 99 87 Oximetry 04/01/21 04/01/21 04/01/21 16:32 16:37 16:42 Temperature Pulse Rate 155 H 75 78 Respiratory Rate Blood Pressure O2 Sat by Pulse 83 L 100 100 Oximetry 04/01/21 04/01/21 04/01/21 16:47 16:52 16:57 Temperature Pulse Rate 77 76 76 Respiratory Rate Blood Pressure O2 Sat by Pulse 100 100 100 Oximetry 04/01/21 04/01/21 04/01/21 17:02 17:07 17:12 Temperature Pulse Rate 75 74 70 Respiratory Rate Blood Pressure O2 Sat by Pulse 100 100 100 Oximetry 04/01/21 04/01/21 04/01/21 17:17 17:22 17:27 Temperature Pulse Rate 80 72 76 Respiratory Rate Blood Pressure O2 Sat by Pulse 100 100 100 Oximetry 04/01/21 04/01/21 04/01/21 17:32 17:37 17:42 Temperature Pulse Rate 76 76 76 Respiratory Rate Blood Pressure O2 Sat by Pulse 100 99 100 Oximetry 04/01/21 04/01/21 04/01/21 17:47 17:52 17:58 Temperature Pulse Rate 74 75 81 Respiratory Rate Blood Pressure O2 Sat by Pulse 100 100 100 Oximetry 04/01/21 04/01/21 04/01/21 18:02 18:07 18:12 Temperature Pulse Rate 77 75 76 Respiratory Rate Blood Pressure O2 Sat by Pulse 100 100 100 Oximetry 04/01/21 04/01/21 04/01/21 18:17 18:28 18:32 Temperature Pulse Rate 81 77 76 Respiratory Rate Blood Pressure O2 Sat by Pulse 100 80 L 100 Oximetry 04/01/21 04/01/21 04/01/21 18:37 18:42 18:48 Temperature Pulse Rate 84 81 88 Respiratory Rate Blood Pressure O2 Sat by Pulse 100 100 100 Oximetry 0804/01/21 04/01/21 18:59 19:04 19:09 Temperature Pulse Rate 75 86 90 Respiratory Rate Blood Pressure O2 Sat by Pulse 100 100 100 Oximetry 04/01/21 04/01/21 04/01/21 19:12 19:13 19:15 Temperature 97.7 F Pulse Rate 80 88 Respiratory 17 Rate Blood Pressure 119/71 O2 Sat by Pulse 100 100 Oximetry 04/01/21 04/01/21 04/01/21 19:19 19:25 19:29 Temperature Pulse Rate 90 81 86 Respiratory Rate Blood Pressure O2 Sat by Pulse 100 100 100 Oximetry 04/01/21 04/01/21 04/01/21 19:33 19:35 19:37 Temperature Pulse Rate 85 88 85 Respiratory Rate Blood Pressure 122/71 115/68 113/68 O2 Sat by Pulse 100 Oximetry 04/01/21 04/01/21 04/01/21 19:39 19:40 19:42 Temperature Pulse Rate 85 80 83 Respiratory Rate Blood Pressure 118/72 116/56 O2 Sat by Pulse 100 Oximetry 04/01/21 04/01/21 04/01/21 19:43 19:45 19:50 Temperature Pulse Rate 73 77 Respiratory Rate Blood Pressure 124/64 106/63 O2 Sat by Pulse 100 99 Oximetry 04/01/21 04/01/21 04/01/21 19:54 19:55 20:00 Temperature Pulse Rate 72 75 84 Respiratory Rate Blood Pressure 127/71 O2 Sat by Pulse 99 98 Oximetry 04/01/21 04/01/21 04/01/21 20:05 20:09 20:10 Temperature Pulse Rate 71 71 78 Respiratory Rate Blood Pressure 126/72 O2 Sat by Pulse 99 99 Oximetry 04/01/21 04/01/21 04/01/21 20:14 20:20 20:25 Temperature Pulse Rate 71 75 72 Respiratory Rate Blood Pressure 114/65 O2 Sat by Pulse 99 99 99 Oximetry 04/01/21 04/01/21 04/01/21 20:30 20:35 20:40 Temperature Pulse Rate 79 66 72 Respiratory Rate Blood Pressure 93/48 O2 Sat by Pulse 100 99 99 Oximetry 04/01/21 04/01/21 04/01/21 20:45 20:50 20:55 Temperature Pulse Rate 69 71 65 Respiratory Rate Blood Pressure O2 Sat by Pulse 99 99 97 Oximetry 04/01/21 04/01/21 04/01/21 20:57 21:00 21:05 Temperature Pulse Rate 62 72 64 Respiratory Rate Blood Pressure 99/59 O2 Sat by Pulse 99 99 Oximetry 04/01/21 04/01/21 04/01/21 21:10 21:11 21:15 Temperature Pulse Rate 69 68 62 Respiratory Rate Blood Pressure 96/52 O2 Sat by Pulse 99 100 Oximetry 04/01/21 04/01/21 04/01/21 21:18 21:21 21:24 Temperature Pulse Rate 60 68 66 Respiratory Rate Blood Pressure 110/59 O2 Sat by Pulse 99 94 Oximetry 04/01/21 04/01/21 04/01/21 21:26 21:27 21:31 Temperature Pulse Rate 61 58 L 59 L Respiratory Rate Blood Pressure 109/58 O2 Sat by Pulse 99 100 Oximetry 04/01/21 04/01/21 04/01/21 21:36 21:40 21:41 Temperature Pulse Rate 61 64 65 Respiratory Rate Blood Pressure 127/79 O2 Sat by Pulse 100 100 Oximetry 04/01/21 04/01/21 04/01/21 21:46 21:51 21:54 Temperature Pulse Rate 63 62 59 L Respiratory Rate Blood Pressure 117/69 O2 Sat by Pulse 100 100 Oximetry 04/01/21 04/01/21 04/01/21 21:56 22:01 22:06 Temperature Pulse Rate 63 65 66 Respiratory Rate Blood Pressure O2 Sat by Pulse 100 100 100 Oximetry 04/01/21 04/01/21 04/01/21 22:11 22:16 22:20 Temperature Pulse Rate 63 74 59 L Respiratory Rate Blood Pressure 121/70 O2 Sat by Pulse 100 99 100 Oximetry 04/01/21 04/01/21 04/01/21 22:24 22:26 22:31 Temperature Pulse Rate 60 72 58 L Respiratory Rate Blood Pressure 115/63 O2 Sat by Pulse 99 100 Oximetry 04/01/21 04/01/21 04/01/21 22:36 22:41 22:46 Temperature Pulse Rate 60 64 67 Respiratory Rate Blood Pressure 110/57 O2 Sat by Pulse 99 99 99 Oximetry 04/01/21 04/01/21 04/01/21 22:51 22:56 23:01 Temperature Pulse Rate 68 60 74 Respiratory Rate Blood Pressure 116/68 O2 Sat by Pulse 100 99 100 Oximetry 04/01/21 04/01/21 04/01/21 23:06 23:10 23:11 Temperature Pulse Rate 63 67 70 Respiratory Rate Blood Pressure 118/72 O2 Sat by Pulse 99 99 Oximetry 04/01/21 23:16 Temperature Pulse Rate 65 Respiratory Rate Blood Pressure O2 Sat by Pulse 100 Oximetry - Exam Breasts: deferred Cardiovascular: Regular rate Lungs: Normal air movement Abdomen: Present: normal appearance, soft Vulva: both: normal Uterus: Present: normal. Absent: tenderness FHR: auscultation normal, category 1 Uterine Contraction Monitor Mode: External Cervical Dilatation: 3.5 Cervical Effacement Percentage: 50 station: -2 Uterine Contraction Frequency (min): 2 Uterine Contraction Pattern: Regular Uterine Tone Measurement Phase: Resting Extremities: normal - Labs Labs: Abnormal Labs 04/01/21 11:01 MCH 33 H Laboratory Results - last 24 hr 04/01/21 04/01/21 04/01/21 08:25 11:01 11:01 WBC 6.8 RBC 4.11 Hgb 13.4 Hct 39.0 MCV 95 MCH 33 H MCHC 34 RDW 14.9 Plt Count 188 Syphilis IgG Antibody Nonreactive Coronavirus (PCR) Negative Blood Type Antibody Screen 04/01/21 11:01 WBC RBC Hgb Hct MCV MCH MCHC RDW Plt Count Syphilis IgG Antibody Coronavirus (PCR) Blood Type A POSITIVE Antibody Screen Negative
--- NOTE | 2021-04-02 03:52 | Event Note ---
Date: 04/02/21 Pt comfortable with epidural and without complaints at this time. Cat 1 FHT's with regular contractions noted. SVE /-2; POC discussed with pt and SO. All questions and concerns addressed. Plan to continue Pitocin augmentation and anticipate .
[2021-04-02] MEDS: fentaNYL-BUPIV 2 MCG/ML-0.125% 200 MCG/100 ML BAG EPIDURAL SCH (04:17)
--- NOTE | 2021-04-02 07:17 | Progress Note ---
Assessment and Plan Pt comfortable with epidural Pt called out to report ROM, lg amt fluid noted meconium stained NICU made aware. SVE 6,70,-1 IUPC placed unable to place ISE . Continue pitocin Anticipate delivery. - Patient Problems (1) Meconium in amniotic fluid Onset Date: ~04/02/21 Current Visit: Yes Status: Acute Plan to address problem: NICU notified Anticipate delivery Subjective - Subjective Date of service: 04/02/21 (Called to room ROM) Principal diagnosis: IUP @ 41.3 weeks, IOL ; Meconium Patient reports: loss of fluid (large amt meconium stained fluid), movement normal, no new complaints, no vaginal bleeding, no contractions Objective - Vital Signs Vital Signs: Vital Signs - 12hr 04/01/21 04/01/21 04/01/21 19:12 19:13 19:15 Temperature 97.7 F Pulse Rate 80 88 Respiratory 17 Rate Blood Pressure 119/71 O2 Sat by Pulse 100 100 Oximetry 04/01/21 04/01/21 04/01/21 19:19 19:25 19:29 Temperature Pulse Rate 90 81 86 Respiratory Rate Blood Pressure O2 Sat by Pulse 100 100 100 Oximetry 04/01/21 04/01/21 04/01/21 19:33 19:35 19:37 Temperature Pulse Rate 85 88 85 Respiratory Rate Blood Pressure 122/71 115/68 113/68 O2 Sat by Pulse 100 Oximetry 04/01/21 04/01/21 04/01/21 19:39 19:40 19:42 Temperature Pulse Rate 85 80 83 Respiratory Rate Blood Pressure 118/72 116/56 O2 Sat by Pulse 100 Oximetry 04/01/21 04/01/21 04/01/21 19:43 19:45 19:50 Temperature Pulse Rate 73 77 Respiratory Rate Blood Pressure 124/64 106/63 O2 Sat by Pulse 100 99 Oximetry 04/01/21 04/01/21 04/01/21 19:54 19:55 20:00 Temperature Pulse Rate 72 75 84 Respiratory Rate Blood Pressure 127/71 O2 Sat by Pulse 99 98 Oximetry 04/01/21 04/01/21 04/01/21 20:05 20:09 20:10 Temperature Pulse Rate 71 71 78 Respiratory Rate Blood Pressure 126/72 O2 Sat by Pulse 99 99 Oximetry 04/01/21 04/01/21 04/01/21 20:14 20:20 20:25 Temperature Pulse Rate 71 75 72 Respiratory Rate Blood Pressure 114/65 O2 Sat by Pulse 99 99 99 Oximetry 04/01/21 04/01/21 04/01/21 20:30 20:35 20:40 Temperature Pulse Rate 79 66 72 Respiratory Rate Blood Pressure 93/48 O2 Sat by Pulse 100 99 99 Oximetry 04/01/21 04/01/21 04/01/21 20:45 20:50 20:55 Temperature Pulse Rate 69 71 65 Respiratory Rate Blood Pressure O2 Sat by Pulse 99 99 97 Oximetry 04/01/21 04/01/21 04/01/21 20:57 21:00 21:05 Temperature Pulse Rate 62 72 64 Respiratory Rate Blood Pressure 99/59 O2 Sat by Pulse 99 99 Oximetry 04/01/21 04/01/21 04/01/21 21:10 21:11 21:15 Temperature Pulse Rate 69 68 62 Respiratory Rate Blood Pressure 96/52 O2 Sat by Pulse 99 100 Oximetry 04/01/21 04/01/21 04/01/21 21:18 21:21 21:24 Temperature Pulse Rate 60 68 66 Respiratory Rate Blood Pressure 110/59 O2 Sat by Pulse 99 94 Oximetry 04/01/21 04/01/21 04/01/21 21:26 21:27 21:31 Temperature Pulse Rate 61 58 L 59 L Respiratory Rate Blood Pressure 109/58 O2 Sat by Pulse 99 100 Oximetry 04/01/21 04/01/21 04/01/21 21:36 21:40 21:41 Temperature Pulse Rate 61 64 65 Respiratory Rate Blood Pressure 127/79 O2 Sat by Pulse 100 100 Oximetry 04/01/21 04/01/21 04/01/21 21:46 21:51 21:54 Temperature Pulse Rate 63 62 59 L Respiratory Rate Blood Pressure 117/69 O2 Sat by Pulse 100 100 Oximetry 04/01/21 04/01/21 04/01/21 21:56 22:01 22:06 Temperature Pulse Rate 63 65 66 Respiratory Rate Blood Pressure O2 Sat by Pulse 100 100 100 Oximetry 04/01/21 04/01/21 04/01/21 22:11 22:16 22:20 Temperature Pulse Rate 63 74 59 L Respiratory Rate Blood Pressure 121/70 O2 Sat by Pulse 100 99 100 Oximetry 04/01/21 04/01/21 04/01/21 22:24 22:26 22:31 Temperature Pulse Rate 60 72 58 L Respiratory Rate Blood Pressure 115/63 O2 Sat by Pulse 99 100 Oximetry 04/01/21 04/01/21 04/01/21 22:36 22:41 22:46 Temperature Pulse Rate 60 64 67 Respiratory Rate Blood Pressure 110/57 O2 Sat by Pulse 99 99 99 Oximetry 04/01/21 04/01/21 04/01/21 22:51 22:56 23:01 Temperature Pulse Rate 68 60 74 Respiratory Rate Blood Pressure 116/68 O2 Sat by Pulse 100 99 100 Oximetry 04/01/21 04/01/21 04/01/21 23:06 23:10 23:11 Temperature Pulse Rate 63 67 70 Respiratory Rate Blood Pressure 118/72 O2 Sat by Pulse 99 99 Oximetry 04/01/21 04/01/21 04/01/21 23:16 23:21 23:24 Temperature Pulse Rate 65 66 74 Respiratory Rate Blood Pressure 99/56 O2 Sat by Pulse 100 100 Oximetry 04/01/21 04/01/21 04/01/21 23:26 23:31 23:36 Temperature Pulse Rate 76 70 63 Respiratory Rate Blood Pressure O2 Sat by Pulse 98 99 100 Oximetry 04/01/21 04/01/21 04/01/21 23:40 23:41 23:46 Temperature Pulse Rate 62 68 64 Respiratory Rate Blood Pressure 117/79 O2 Sat by Pulse 100 100 Oximetry 04/01/21 04/01/21 04/01/21 23:51 23:54 23:56 Temperature Pulse Rate 70 65 74 Respiratory Rate Blood Pressure 121/78 O2 Sat by Pulse 99 100 Oximetry 04/02/21 04/02/21 04/02/21 00:01 00:06 00:11 Temperature 97.6 F Pulse Rate 67 61 67 Respiratory 17 Rate Blood Pressure O2 Sat by Pulse 100 100 98 Oximetry 04/02/21 04/02/21 04/02/21 00:16 00:21 00:26 Temperature Pulse Rate 61 64 66 Respiratory Rate Blood Pressure O2 Sat by Pulse 99 99 99 Oximetry 04/02/21 04/02/21 04/02/21 00:31 00:36 00:38 Temperature Pulse Rate 65 66 63 Respiratory Rate Blood Pressure 117/76 O2 Sat by Pulse 99 99 Oximetry 04/02/21 04/02/21 04/02/21 00:41 00:46 00:51 Temperature Pulse Rate 65 64 65 Respiratory Rate Blood Pressure O2 Sat by Pulse 100 99 100 Oximetry 04/02/21 04/02/21 04/02/21 00:56 01:01 01:06 Temperature Pulse Rate 63 68 59 L Respiratory Rate Blood Pressure O2 Sat by Pulse 99 100 99 Oximetry 04/02/21 04/02/21 04/02/21 01:08 01:11 01:16 Temperature Pulse Rate 64 66 65 Respiratory Rate Blood Pressure 112/67 O2 Sat by Pulse 100 99 Oximetry 04/02/21 04/02/21 04/02/21 01:21 01:26 01:31 Temperature Pulse Rate 66 67 63 Respiratory Rate Blood Pressure O2 Sat by Pulse 100 100 99 Oximetry 04/02/21 04/02/21 04/02/21 01:36 01:37 01:41 Temperature Pulse Rate 63 57 L 60 Respiratory Rate Blood Pressure 117/76 O2 Sat by Pulse 100 100 Oximetry 04/02/21 04/02/21 04/02/21 01:46 01:51 01:56 Temperature Pulse Rate 65 65 65 Respiratory Rate Blood Pressure O2 Sat by Pulse 100 100 99 Oximetry 04/02/21 04/02/21 04/02/21 02:01 02:06 02:08 Temperature Pulse Rate 65 58 L 59 L Respiratory Rate Blood Pressure 120/77 O2 Sat by Pulse 100 99 Oximetry 04/02/21 04/02/21 04/02/21 02:11 02:16 02:21 Temperature Pulse Rate 66 66 67 Respiratory Rate Blood Pressure O2 Sat by Pulse 99 100 100 Oximetry 04/02/21 04/02/21 04/02/21 02:26 02:31 02:36 Temperature Pulse Rate 67 66 69 Respiratory Rate Blood Pressure O2 Sat by Pulse 99 99 99 Oximetry 04/02/21 04/02/21 04/02/21 02:39 02:41 02:46 Temperature Pulse Rate 64 69 65 Respiratory Rate Blood Pressure 113/68 O2 Sat by Pulse 100 100 Oximetry 04/02/21 04/02/21 04/02/21 02:51 02:56 03:01 Temperature Pulse Rate 77 72 64 Respiratory Rate Blood Pressure O2 Sat by Pulse 99 99 99 Oximetry 04/02/21 04/02/21 04/02/21 03:06 03:07 03:11 Temperature Pulse Rate 71 73 71 Respiratory Rate Blood Pressure 105/62 O2 Sat by Pulse 99 99 Oximetry 04/02/21 04/02/21 04/02/21 03:16 03:21 03:26 Temperature Pulse Rate 79 83 82 Respiratory Rate Blood Pressure O2 Sat by Pulse 100 100 100 Oximetry 04/02/21 04/02/21 04/02/21 03:31 03:36 03:37 Temperature Pulse Rate 71 77 82 Respiratory Rate Blood Pressure 103/58 O2 Sat by Pulse 99 100 Oximetry 04/02/21 04/02/21 04/02/21 03:41 03:46 03:51 Temperature Pulse Rate 91 H 80 71 Respiratory Rate Blood Pressure O2 Sat by Pulse 100 100 100 Oximetry 04/02/21 04/02/21 04/02/21 03:56 04:01 04:06 Temperature Pulse Rate 73 63 72 Respiratory Rate Blood Pressure O2 Sat by Pulse 100 100 100 Oximetry 04/02/21 04/02/21 04/02/21 04:07 04:11 04:16 Temperature Pulse Rate 63 67 63 Respiratory Rate Blood Pressure 119/69 O2 Sat by Pulse 99 100 Oximetry 04/02/21 04/02/21 04/02/21 04:21 04:26 04:31 Temperature Pulse Rate 81 66 64 Respiratory Rate Blood Pressure O2 Sat by Pulse 100 100 100 Oximetry 04/02/21 04/02/21 04/02/21 04:35 04:36 04:38 Temperature 97.9 F Pulse Rate 70 73 Respiratory Rate Blood Pressure 111/68 O2 Sat by Pulse 100 Oximetry 04/02/21 04/02/21 04/02/21 04:41 04:46 04:51 Temperature Pulse Rate 79 75 76 Respiratory Rate Blood Pressure O2 Sat by Pulse 99 100 100 Oximetry 04/02/21 04/02/21 04/02/21 04:56 05:01 05:06 Temperature Pulse Rate 74 75 71 Respiratory Rate Blood Pressure O2 Sat by Pulse 99 99 100 Oximetry 04/02/21 04/02/21 04/02/21 05:07 05:11 05:16 Temperature Pulse Rate 64 72 75 Respiratory Rate Blood Pressure 119/71 O2 Sat by Pulse 99 99 Oximetry 04/02/21 04/02/21 04/02/21 05:21 05:26 05:31 Temperature Pulse Rate 69 74 75 Respiratory Rate Blood Pressure O2 Sat by Pulse 100 99 99 Oximetry 04/02/21 04/02/2121 05:36 05:41 05:46 Temperature Pulse Rate 73 73 71 Respiratory Rate Blood Pressure O2 Sat by Pulse 99 99 99 Oximetry 04/02/21 04/02/21 04/02/21 05:51 05:56 06:01 Temperature Pulse Rate 78 72 64 Respiratory Rate Blood Pressure O2 Sat by Pulse 98 98 99 Oximetry 04/02/21 04/02/21 04/02/21 06:06 06:07 06:11 Temperature Pulse Rate 64 68 76 Respiratory Rate Blood Pressure 102/57 O2 Sat by Pulse 99 98 Oximetry 04/02/21 04/02/21 04/02/21 06:16 06:21 06:26 Temperature Pulse Rate 77 69 74 Respiratory Rate Blood Pressure O2 Sat by Pulse 99 99 99 Oximetry 04/02/21 04/02/21 04/02/21 06:31 06:36 06:38 Temperature Pulse Rate 73 70 64 Respiratory Rate Blood Pressure 114/75 O2 Sat by Pulse 98 99 Oximetry 04/02/21 04/02/21 04/02/21 06:41 06:44 06:46 Temperature Pulse Rate 71 86 77 Respiratory Rate Blood Pressure O2 Sat by Pulse 99 93 100 Oximetry 04/02/21 04/02/21 04/02/21 06:49 06:51 06:56 Temperature Pulse Rate 89 82 83 Respiratory Rate Blood Pressure O2 Sat by Pulse 87 100 100 Oximetry 04/02/21 04/02/21 04/02/21 07:01 07:06 07:07 Temperature Pulse Rate 75 66 72 Respiratory Rate Blood Pressure 112/65 O2 Sat by Pulse 100 81 L Oximetry - Exam Breasts: deferred Cardiovascular: Regular rate Lungs: Clear to auscultation Abdomen: Present: normal appearance, soft. Absent: distention, tenderness Uterus: Present: normal FHR: auscultation normal, category 1 Uterine Contraction Monitor Mode: Internal Cervical Dilatation: 6 (IUPC placed) Cervical Effacement Percentage: 70 (ISE not applied; failed X 3) station: -1 Uterine Contraction Pattern: Regular Uterine Tone Measurement Phase: Resting Uterine Contraction Intensity: Moderate Extremities: normal Deep Tendon Reflex Grade: Normal +2 - Labs Labs: Abnormal Labs 04/01/21 11:01 MCH 33 H Laboratory Results - last 24 hr 04/01/21 04/01/21 04/01/21 08:25 11:01 11:01 WBC 6.8 RBC 4.11 Hgb 13.4 Hct 39.0 MCV 95 MCH 33 H MCHC 34 RDW 14.9 Plt Count 188 Syphilis IgG Antibody Nonreactive Coronavirus (PCR) Negative Blood Type Antibody Screen 04/01/21 11:01 WBC RBC Hgb Hct MCV MCH MCHC RDW Plt Count Syphilis IgG Antibody Coronavirus (PCR) Blood Type A POSITIVE Antibody Screen Negative
--- NOTE | 2021-04-02 08:22 | Event Note ---
Date: 04/02/21 (c/o pressure) SVE 9,100,0 Anticipate delivery
--- NOTE | 2021-04-02 09:45 | Procedure Note ---
OB Delivery Note - Delivery Date of Delivery: 04/02/21 Barrel Repairer: HITESH PONCE Estimated blood loss: 300cc - Vaginal Delivery presentation: vertex Delivery position: OA Intrapartum events: meconium, shoulder dystocia (60sec resolved with Ashlyn and maternal effort) Delivery induction: oxytocin Delivery augmentation: pitocin Delivery monitor: external FHT, external uterine, internal uterine Route of delivery: Delivery placenta: spontaneous Delivery cord: 3 umbilical vessels Episiotomy: none Delivery laceration: none Anesthesia: epidural Delivery comments: pt called out with c/o pressure SVE C,C,+1 Count correct X 2 live born male over intact perineum. Mild dystocia X 60seconds resolved with Ashlyn and maternal effort. DIPAK called baby slow to respond 8/9 Placenta and membrane del complete and intact, 3 vessel cord. pit IVFs Delivery concerns explained to pt. & SO. She states this is the biggest baby she has had by 2+pounds! EBL 300, Wgt 8-7. Mom and baby remain LDR stable All concerns addressed - Infant A at 1 minute: 8 at 5 minutes: 9 Infant Gender: Male (wgt 8-7 [place])
[2021-04-02] MEDS ORDERED: ONDANSETRON 4 MG/2 ML INJ IV PRN (10:00)
[2021-04-02] MEDS ORDERED: LANOLIN/ZINC/DIMETHICONE (LANSINOH) 7 GM TP PRN (10:00)
[2021-04-02] MEDS ORDERED: WITCH HAZEL/ GLYCERIN PAD TP PRN (10:00)
[2021-04-02] MEDS ORDERED: diphenhydrAMINE 25 MG CAP PO PRN (10:00)
[2021-04-02] MEDS ORDERED: PROMETHAZINE 25 MG TAB PO PRN (10:00)
[2021-04-02] MEDS: IBUPROFEN 600 MG TAB PO SCH ×3 (10:03→22:56)
[2021-04-02] MEDS: PRENATAL VIT27-FE FUMARATE-FOLIC ACID VIT TAB PO SCH (10:04)
[2021-04-02] MEDS: DOCUSATE SODIUM 100 MG CAP PO SCH ×2 (10:05→22:57)
[2021-04-02] MEDS: HYDROcodone/ACETAMINOPHEN 5-325 MG TAB PO PRN ×3 (13:03→21:03)
[2021-04-02] MEDS ORDERED: MAGNESIUM HYDROXIDE (MOM) ORAL LIQD UDC PO PRN (22:00)
[2021-04-03 00:52] LABS: Hematocrit 32.3 % (30.3-42.9); Hemoglobin 10.9 gm/dl (10.1-14.3)
[2021-04-03] MEDS: HYDROcodone/ACETAMINOPHEN 5-325 MG TAB PO PRN (03:48)
[2021-04-03] MEDS: IBUPROFEN 600 MG TAB PO SCH ×2 (05:47→11:59)
[2021-04-03 08:32] VITALS: BP 109/69
--- NOTE | 2021-04-03 09:06 | Discharge Summary ---
Providers - Providers Date of Admission: 04/01/21 08:35 Date of discharge: 04/03/21 (pt desires discharge home) Attending physician: MARIANNE MAHONEY Primary care physician: MARIANNE MAOHNEY Hospitalization Reason for admission: induction of labor, IUP at term Delivery: Episiotomy: none Laceration: none Other procedures: none complications: none Discharge diagnosis: IUP at term delivered [place] baby: male Condition at discharge: Good Disposition: 01 HOME / SELF CARE / HOMELESS - Discharge Diagnoses (1) 41 weeks gestation of Status: Acute (2) Encounter for induction of labor Status: Acute (3) Asthma Status: Acute (4) PTSD (post-traumatic stress disorder) Status: Acute (5) Bipolar affect, depressed Status: Acute Plan - Discharge Medications Prescriptions: Lidocain2.5%/Prilocai2.5% [Emla] 5 gm TP ONCE #1 tube - Provider Discharge Summary Activity: routine, no sex for 6 weeks, no heavy lifting 4 weeks, no strenuous exercise Diet: routine Instructions: routine Additional instructions: [] Smoking cessation referral if applicable(refer to patient education folder for contact #) [] Refer to [facility]'s [facility] Booklet Call your doctor immediately for: * Fever > 100.5 * Heavy vaginal bleeding ( >1 pad per hour) * Severe persistent headache * Shortness of breath * Reddened, hot, painful area to leg or breast * Drainage or odor from incision. * Keep incision clean and dry at all times and follow doctor's instructions regarding bathing/showering Congratulations! Please call [phone] and schedule an appointment for both you and baby to be seen in the office in 1 week. Please do not open the lidocaine prescription. Please bring the prescription to your office visit for your 's circumcision. Thank you! - Follow up plan Follow up: MARIANNE MAHONEY MD [Primary Care Provider] - 7 Days
[2021-04-03] MEDS ORDERED: TETANUS,DIPH,PERTUSS(ACELL) VACCINE 0.5 ML SYRINGE IM ONE (09:17)
--- NOTE | 2021-04-03 10:15 | Post Anesthesia Evaluation ---
- Post Anesthesia Evaluation Patient Participated: Yes Airway Patent: Yes Stable Respiratory Function: Yes Nausea/Vomiting: No Temp > 96.8F: Yes Pain Manageable: Yes Adequeate Hydration: Yes Anesthesia Complications: No Block Receding Appropriately: Yes Patient on Ventilator: No
[2021-04-03] MEDS: DOCUSATE SODIUM 100 MG CAP PO SCH (12:00)
[2021-04-03] MEDS: PRENATAL VIT27-FE FUMARATE-FOLIC ACID VIT TAB PO SCH (12:00)
== END 2021-04-03 14:23 | disposition home or self-care (01) | DRG 775 ==
LOC: LD 08:34 → TRG 08:34 → LD 08:35 → TRG 10:14 → OB 04-02 11:12
PROVIDERS: ADMIT Obstetrics & Gynecology; ATTEND Obstetrics & Gynecology
PROC: 10E0XZZ Delivery of Products of Conception, External Approach (ICD-10-PCS; principal; 2021-04-02)
PROC: 10H07YZ Insertion of Other Device into Products of Conception, Via Natural or Artificial Opening (ICD-10-PCS; 2021-04-02)
PROC: 10H073Z Insertion of Monitoring Electrode into Products of Conception, Via Natural or Artificial Opening (ICD-10-PCS; 2021-04-02)
PROC: 3E0R3BZ Introduction of Anesthetic Agent into Spinal Canal, Percutaneous Approach (ICD-10-PCS; 2021-04-02)
PROC: 00HU33Z Insertion of Infusion Device into Spinal Canal, Percutaneous Approach (ICD-10-PCS; 2021-04-02)
PROC: 3E0234Z Introduction of Serum, Toxoid and Vaccine into Muscle, Percutaneous Approach (ICD-10-PCS; 2021-04-03)
DX: O48.0 Post-term pregnancy (principal); Z37.0 Single live birth; Z3A.41 41 weeks gestation of pregnancy; F43.10 Post-traumatic stress disorder, unspecified; F31.30 Bipolar disorder, current episode depressed, mild or moderate severity, unspecified; O66.0 Obstructed labor due to shoulder dystocia; J45.909 Unspecified asthma, uncomplicated; O77.0 Labor and delivery complicated by meconium in amniotic fluid; Z23 Encounter for immunization; O99.344 Other mental disorders complicating childbirth; O99.52 Diseases of the respiratory system complicating childbirth; Z88.0 Allergy status to penicillin
CPT/HCPCS: 36415; 85014; 85018; 85027; 86592; 86850; 86900; 86901; 88307; 96360; 96361; 96365; 96366; 96374; 99211; G0378; G0463; J2405; J2590; J7120; U0003

== ENCOUNTER 2021-11-28 21:13 | Emergency (ER) | payer OTHER ==
[2021-11-28 21:41] VITALS: BP 109/59
--- NOTE | 2021-11-28 22:37 | XRay Report ---
Right foot 3 views INDICATION: Right foot pain following injury IMPRESSION: There is an obliquely oriented fracture identified involving the proximal phalanx of the fourth toe. Signer Name: Derrick Preston MD Signed: 11/28/2021 10:33 PM Workstation Name: [id number]
== END 2021-11-29 03:12 | disposition left against medical advice (07) ==
LOC: ED 21:13
DX: M79.671 Pain in right foot (principal); Z53.21 Procedure and treatment not carried out due to patient leaving prior to being seen by health care provider

== ENCOUNTER 2021-11-29 10:48 | Emergency (ER) | payer OTHER ==
[2021-11-29 12:03] VITALS: BP 124/81
--- NOTE | 2021-11-29 16:21 | Emergency Department Report ---
ED Extremity Problem HPI - General Chief complaint: Extremity Injury, Lower Stated complaint: RT TOE INJURY Source: patient Mode of arrival: Ambulatory Limitations: No Limitations - History of Present Illness Initial comments: 26-year-old female presented to the ED complaining of right foot pain. Patient states she was rising up running after her child when she hit her right foot against a wooden bedpost. Patient states that she came to the ED x1 day ago but left due to the long wait. Patient had x-ray that showed she had a right oblique fracture at the proximal - Related Data Previous Rx's Medication Instructions Recorded Last Taken Type Polyethylene Glycol 3350 [Miralax] 17 gm PO DAILY #1 powder 09/18/20 Unknown Rx Cetirizine HCl [Zyrtec 10mg tab] 10 mg PO QDAY #30 tablet 11/02/20 Unknown Rx Levalbuterol Tartrate 15 gm IH QID PRN #1 hfa.[email or web address] 11/02/20 Unknown Rx [Levalbuterol Tartrate Hfa] Lidocain2.5%/Prilocai2.5% [Emla] 5 gm TP ONCE #1 tube 04/03/21 Unknown Rx Allergies Allergy/AdvReac Type Severity Reaction Status Date / Time Penicillins Allergy Hives Verified 09/18/20 11:07 ED Review of Systems ROS: Stated complaint: RT TOE INJURY Other details as noted in HPI ED Past Medical Hx - Past Medical History Hx Hypertension: No Hx Heart Attack/AMI: No Hx Congestive Heart Failure: No Hx Diabetes: No Hx Deep Vein Thrombosis: No Hx Liver Disease: No Hx Renal Disease: No Hx Sickle Cell Disease: No Hx Seizures: No Hx Asthma: Yes Hx COPD: No Hx HIV: No - Surgical History Hx Pacemaker: No Hx Internal Defibrillator: No Additional Surgical History: HERNIA - Social History Smoking Status: Former Smoker - Medications Home Medications: Home Medications Medication Instructions Recorded Confirmed Last Taken Type Polyethylene Glycol 3350 [Miralax] 17 gm PO DAILY #1 powder 09/18/20 04/03/21 Unknown Rx Cetirizine HCl [Zyrtec 10mg tab] 10 mg PO QDAY #30 tablet 11/02/20 04/03/21 Unknown Rx Levalbuterol Tartrate 15 gm IH QID PRN #1 hfa.aer.ad 11/02/20 04/03/21 Unknown Rx [Levalbuterol Tartrate Hfa] Lidocain2.5%/Prilocai2.5% [Emla] 5 gm TP ONCE #1 tube 04/03/21 Unknown Rx ED Physical Exam - General Limitations: No Limitations ED Course Vital Signs 11/29/21 12:02 Temperature 98.8 F Pulse Rate 85 Respiratory 16 Rate Blood Pressure 124/81 O2 Sat by Pulse 100 Oximetry Critical care attestation.: If time is entered above; I have spent that time in minutes in the direct care of this critically ill patient, excluding procedure time. ED Disposition Condition: Stable Referrals: VIVIAN SHEPHERD MD [Primary Care Provider] - 3-5 Days
== END 2021-11-29 19:01 ==
LOC: ED 10:48
DX: M79.671 Pain in right foot (principal); Z88.0 Allergy status to penicillin; Z79.899 Other long term (current) drug therapy; Z87.891 Personal history of nicotine dependence
CPT/HCPCS: 99281